=== PATIENT | female | born 1990 | race African-American/Black ===

== ENCOUNTER 2017-10-22 13:29 | Emergency (ER) | payer MEDICAID, OTHER ==
[~2017-10-22] VITALS: Ht 170.2 cm; Wt 152.0 kg
[2017-10-22] MEDS ORDERED: INSU100V3 SUBCUT (13:45)
[2017-10-22 14:29] VITALS: BP 131/87
[2017-10-22] MEDS ORDERED: ACETAMINOPHEN 325MG TABLET PO ONE (15:45)
== END 2017-10-22 16:28 | disposition home or self-care (01) ==
LOC: ER 13:29
DX: O24.912 Unspecified diabetes mellitus in pregnancy, second trimester (principal); R51 Headache; Z3A.27 27 weeks gestation of pregnancy; Z79.4 Long term (current) use of insulin; Z98.890 Other specified postprocedural states
CPT/HCPCS: 81025; 82962; 99282

== ENCOUNTER 2017-11-13 13:10 | Observation (INO) | payer OTHER ==
[~2017-11-13] VITALS: Ht 170.2 cm; Wt 148.0 kg
[~2017-11-13 13:10] MED LIST: INSU100V3 SUBCUT
[2017-11-13 19:10] LABS: BASOPHILS % 0.5 % (0.0-2.0); EOSINOPHILS % 0.9 % (0.0-5.0); HEMATOCRIT. 35.3 % (36.0-48.0); HEMOGLOBIN. 11.7 g/dL (12.0-16.0); LYMPHOCYTES % 19.2 % (20.0-50.0); MEAN CORPUSCULAR HEMOGLOBIN 26.6 pg (28.0-32.0); MEAN CORPUSCULAR VOLUME 80.2 fL (81.0-99.0); MEAN PLATELET VOLUME 10.4 fl (7.4-10.4); NEUTROPHILS % 73.4 % (40.0-76.0); PLATELET 204 x1000/uL (130-400); RED CELL DISTRIBUTION WIDTH 14.3 % (11.6-14.6)
[2017-11-13 19:11] LABS: CLARITY URINE CLOUDY (CLEAR); COLOR URINE YELLOW (YELLOW); KETONES URINE 4+ (NEGATIVE); LEUKOCYTE ESTERASE URINE NEGATIVE (NEGATIVE); NITRITE URINE NEGATIVE (NEGATIVE); OCCULT BLOOD URINE NEGATIVE (NEGATIVE); PH URINE 5.5 (4.5-8.0); PROTEIN URINE NEGATIVE (NEGATIVE); SPECIFIC GRAVITY URINE 1.041 (1.005-1.030); UROBILINOGEN URINE 0.2 E.U./dL (0.2-1.0)
[2017-11-13 19:14] LABS: CHLORIDE 101 mEq/L (98-107)
[2017-11-13 19:15] LABS: PROTHROMBIN TIME 10.5 sec (9.4-11.6)
[2017-11-13 19:23] LABS: CARBON DIOXIDE 23 mEq/L (21-32)
[2017-11-13] MEDS ORDERED: SODIUM CHLORIDE 0.9% 1,000 ML IV ONE (22:08)
[2017-11-13] MEDS ORDERED: INSULIN REGULAR (HUMULIN R) 300UNITS/3ML SUBCUT ONE (22:15)
[2017-11-13 23:00] VITALS: BP 111/78
== END 2017-11-13 23:45 | disposition left against medical advice (07) ==
LOC: ER 13:10 → EDSTATUS 13:36 → L&D 13:41 → UNDOADMOB 13:41 → EDSTATUS 15:02 → 6EST 20:42 → INTOOBSV 20:42 → EDBEDREQ 20:45 → ENRESERV 21:56
PROVIDERS: ADMIT Specialist; ATTEND Specialist
DX: O21.2 Late vomiting of pregnancy (principal); O24.113 Pre-existing type 2 diabetes mellitus, in pregnancy, third trimester; O99.613 Diseases of the digestive system complicating pregnancy, third trimester; K21.9 Gastro-esophageal reflux disease without esophagitis; Z3A.30 30 weeks gestation of pregnancy; Z79.899 Other long term (current) drug therapy
CPT/HCPCS: 36415; 76700; 76815; 80053; 81001; 82010; 82962; 83690; 85025; 85610; 93005; 96361; 96374; 99285; G0378; J1815; J7030

== ENCOUNTER 2019-12-02 14:58 | Emergency (ER) | payer OTHER ==
[~2019-12-02] VITALS: Ht 170.2 cm; Wt 132.0 kg
[2019-12-02 15:56] VITALS: BP 132/84
== END 2019-12-02 18:25 | disposition left against medical advice (07) ==
LOC: ER 14:58
DX: Z53.21 Procedure and treatment not carried out due to patient leaving prior to being seen by health care provider (principal)

== ENCOUNTER 2020-07-28 14:20 | Emergency (ER) | payer OTHER ==
[~2020-07-28] VITALS: Ht 170.2 cm; Wt 132.0 kg
[2020-07-28] MEDS ORDERED: AMOXICILLIN/POTASSIUM CLAVULANATE 875/125MG TAB PO ONE (17:00)
[2020-07-28] MEDS ORDERED: IBUPROFEN 600MG TABLET PO ONE (17:00)
[2020-07-28 17:13] VITALS: BP 116/80
== END 2020-07-28 17:15 | disposition home or self-care (01) ==
LOC: ER 14:20
DX: J03.90 Acute tonsillitis, unspecified (principal); E11.9 Type 2 diabetes mellitus without complications; Z98.890 Other specified postprocedural states; Z98.51 Tubal ligation status
CPT/HCPCS: 99283

== ENCOUNTER 2021-06-28 22:24 | Emergency (ER) | payer OTHER ==
[~2021-06-28] VITALS: Ht 170.2 cm; Wt 87.0 kg
[2021-06-29 03:06] LABS: BASOPHILS % 0.5 % (0.0-2.0); EOSINOPHILS % 1.4 % (0.0-5.0); HEMATOCRIT. 36.7 % (36.0-48.0); HEMOGLOBIN. 11.9 g/dL (12.0-16.0); LYMPHOCYTES % 24.6 % (20.0-50.0); MEAN CORPUSCULAR HEMOGLOBIN 24.5 pg (28.0-32.0); MEAN CORPUSCULAR VOLUME 75.9 fL (81.0-99.0); MEAN PLATELET VOLUME 10.1 fl (7.4-10.4); NEUTROPHILS % 65.5 % (40.0-76.0); PLATELET 266 x1000/uL (130-400); RED BLOOD CELL COUNT 4.84 mill/uL (4.2-5.4); RED CELL DISTRIBUTION WIDTH 16.4 % (11.6-14.6)
[2021-06-29 03:17] LABS: PROTHROMBIN TIME 10.4 sec (9.6-11.0)
[2021-06-29 03:19] LABS: CHLORIDE 103 mEq/L (98-107)
[2021-06-29] MEDS ORDERED: ACETAMINOPHEN WITH CODEINE 300/30MG TABLET PO ONE (05:00)
[2021-06-29] MEDS ORDERED: CEPH500C2 MT (06:35)
[2021-06-29 06:41] VITALS: BP 129/81
== END 2021-06-29 06:46 | disposition home or self-care (01) ==
LOC: ER 22:24
DX: M79.89 Other specified soft tissue disorders (principal); E11.9 Type 2 diabetes mellitus without complications; Z98.890 Other specified postprocedural states; Z79.4 Long term (current) use of insulin
CPT/HCPCS: 36415; 73700; 76881; 80053; 81025; 85025; 93971; 99285